=== PATIENT | male | born 1950 | race Caucasian/White ===

== ENCOUNTER 2022-01-13 12:53 | Inpatient (IN) | payer MEDICARE, SELFPAY ==
[2022-01-13] VITALS (34 sets, daily range): BP systolic 70–111; BP diastolic 60–77; PULSE 46–104; RESP 10–28; TEMP 28.9–34.7; O2SAT 95–100; BMI 23.1
--- NOTE | ~2022-01-13 | XR_ITS ---
EXAMINATION: XR chest ET placement DATE: 01/13/2022 13:19 INDICATION: Intubation. TECHNIQUE: A single frontal view of the chest was obtained. COMPARISON: Chest 2 views 02/13/2019 FINDINGS: The patient is rotated to his left. There is mild elevation of left hemidiaphragm. There is no pneumonia, pleural effusion, or pneumothorax. The heart size is normal. Calcified mediastinal lym ph nodes are consistent with old granulomatous disease. The endotracheal tube tip is 3.0 cm above the donald. There is a right internal jugular port with tip at superior cavoatrial junction. The nasogas tric tube tip is in the stomach. There are old healed bilateral rib fractures. IMPRESSION: 1. No acute cardiopulmonary disease. Reviewed, dictated and finalized at location B.
--- NOTE | ~2022-01-13 | CT_ITS ---
EXAMINATION: CT brain wo con DATE: 01/13/2022 14:05 INDICATION: Unresponsive. TECHNIQUE: Computed tomography (CT) of the head was performed without intravenous contrast. The mA wa s adjusted according to patient size. Iterative reconstruction technique was employed. The dose-lengt h product was 605.33 mGy-cm. COMPARISON: None FINDINGS: There is acute hematoma in the kingston, midbrain, right thalamus, lateral ventricles, third ve ntricle, and fourth ventricle. There is enlargement of the lateral ventricles. There is extensive dec reased attenuation in the cerebral white matter with a periventricular predominance. There is 9 mm le ftward midline shift measured at the foramen of Monro. There is effacement of the quadrigeminal plate cistern. There is effacement of the cerebral sulci bilaterally. There is mucosal thickening in the p aranasal sinuses. There are likely changes of ocular lens replacement surgeries. The mastoid air cell s are normal. There is superior left posterior scalp soft tissue swelling. IMPRESSION: 1. Acute intraparenchymal hematoma involving the kingston, midbrain, and right thalamus. 2. Acute hematoma in the lateral ventricles, third ventricle, and fourth ventricle with hydrocephalus involving the lateral ventricles. 3. 9 mm leftward midline shift, effacement of the cerebellar sulci, and effacement of the quadrigemin al plate cistern. 4. Extensive cerebral white matter disease, likely a combination of chronic small vessel ischemic dis ease and transependymal flow of cerebrospinal fluid. Reviewed, dictated and finalized at location B. IMPRESSION: 1. Acute intraparenchymal hematoma involving the kingston, midbrain, and right thal amus. 2. Acute hematoma in the lateral ventricles, third ventricle, and fourth ventri jadiel with hydrocephalus involving the lateral ventricles. 3. 9 mm leftward midline shift, effacement of the cerebellar sulci, and effacem ent of the quadrigeminal plate cistern. 4. Extensive cerebral white matter disease, likely a combination of chronic sma ll vessel ischemic disease and transependymal flow of cerebrospinal fluid.
--- NOTE | ~2022-01-13 | XR_ITS ---
XR abdomen NG/feed tube insert INDICATION: Evaluate NG tube position. TECHNIQUE: Limited KUB perform for evaluating NG tube . COMPARISON: No prior studies for comparison. FINDINGS: NG tube tip in the stomach. Visualized bowel gas pattern is unremarkable.Retrocardiac infi ltrates may represent atelectasis or scarring. IMPRESSION: 1: NG tube tip in the stomach. Reviewed, dictated and finalized at location A.
--- NOTE | ~2022-01-13 | CT_ITS ---
EXAMINATION: CT cervical spine wo con DATE: 01/13/2022 14:05 INDICATION: Unresponsive TECHNIQUE: Computed tomography (CT) of the cervical spine was performed without intravenous contrast. Automated exposure control and iterative reconstruction technique were employed. The dose-length pro duct was 212.45 mGy-cm. COMPARISON: None FINDINGS: Mild cervical thoracic dextrocurvature. 2 mm anterolisthesis C4 on C5. Vertebral body heights are nor mal. No fracture. Multilevel disc calcification with severe disc height loss at C5-C6, moderate disc height loss at C3-C4 and mild disc height loss at C2-C3, C4-C5 and C6-C7. Small posterior disc osteop hyte complex at C5-C6 results in mild central canal stenosis at this level. Multilevel bilateral mode rate to severe uncovertebral and cervical facet osteoarthritis. This contributes to moderate neural f oraminal stenosis on the left at C3-C4 and mild at the remaining bilateral cervical levels. Partially visualized endotracheal tube and nasogastric tube and right internal jugular central venous port cat heter, the visualized portions of which each appear normal position. Cervical soft tissues are unrema rkable. Moderate emphysema the apices of the lungs. Mild dependent atelectasis in the visualized apic al segment of the left upper lobe. Prominent intraventricular hemorrhage in the left and right latera l, third and fourth ventricles. See separate head CT report for further detail. IMPRESSION: 1. Severe cervical spondylosis. No acute osseous abnormality. 2. Intraventricular hemorrhage. See separate head CT report for further detail. Reviewed, dictated and finalized at location A.
--- NOTE | 2022-01-13 12:59 | PC.NURSE ---
EDP Dr Jones at bedside to attempt intubation. At 1259, 20 Etomidate and 100 Succinylcholine IVP for procedure.
--- NOTE | 2022-01-13 13:04 | PC.NURSE ---
Pt intubated at this time, 7 1/2 tube, 23 at the teeth. Pt has no lung sounds or chest rise to LEFT lung. +Chest rise and fall and sounds to RIGHT side. XRAY called for STAT Xray.
--- NOTE | 2022-01-13 13:06 | ECG_ITS ---
Measurements Intervals [place] Rate: 57 P: 84 TN: 181 QRS: 75 QRSD: 126 T: 86 QT: 549 QTc: 537 Interpretive Statements SINUS BRADYCARDIA LEFT BUNDLE BRANCH BLOCK MINIMAL Q WAVES- INF/LAT LEADS BASELINE ARTIFACT- I, V2-V3 ABNORMAL ECG Electronically Signed On 01-13-2022 13:24:51 CDT by Christiano Saavedra D.O.
--- NOTE | 2022-01-13 13:12 | ED.GENADULT ---
HPI - General Adult General Chief complaint: Cardiac Arrest/CPR Stated complaint: unresponsive Time Seen by Provider: 01/13/22 13:12 Source: family, EMS and RN notes reviewed Mode of arrival: EMS Limitations: altered mental status and clinical condition History of Present Illness HPI narrative: 71-year-old male presented to the emergency department from home after being found unresponsive at home. Family states that last time they had contact with him was a week ago last Thursday. Patient sister went to go check on him and found him laying on the bathroom floor. She reports the patient did respond to her by giving her a thumbs up. Patient was being bagged upon arrival to the ED. upon arrival to the ED the patient was unresponsive with fixed pupils. Patient does have a past medical history of lung cancer Related Data Home Medications Medication Instructions Recorded Confirmed aspirin 81 mg tablet,delayed 81 mg PO DAILY 02/03/20 01/13/22 release atorvastatin 80 mg tablet 80 mg PO DAILY 02/03/20 01/13/22 tamsulosin 0.4 mg capsule 0.4 mg PO DAILY 02/03/20 01/13/22 duloxetine 30 mg capsule,delayed 60 mg PO DAILY cap 02/23/20 01/13/22 release acetaminophen 500 mg capsule 500 mg PO Q6H PRN 04/16/21 01/13/22 budesonide-formoterol HFA 80 2 puff INHALATION BID g 04/16/21 01/13/22 mcg-4.5 mcg/actuation aerosol inhaler fenofibrate 54 mg tablet 54 mg PO DAILY 04/16/21 01/13/22 levothyroxine 100 mcg tablet 100 mcg PO DAILY 04/16/21 01/13/22 mirtazapine 15 mg tablet 15 mg PO DAILY 04/16/21 01/13/22 multivitamin with minerals 1 cap PO DAILY 04/16/21 01/13/22 omeprazole 20 mg capsule,delayed 20 mg PO DAILY 04/16/21 01/13/22 release bexarotene 75 mg PO BID 01/13/22 01/13/22 Allergies Allergy/AdvReac Type Severity Reaction Status Date / Time No Known Allergies Allergy Mild Verified 01/13/22 18:15 Review of Systems Review of Systems: ROS unobtainable: Yes unobtainable due to medical condition and unobtainable due to mental status PMF Past Medical History Medical History (Updated 01/13/22 @ 21:21 by Mey Jiménez NP) Benign essential hypertension BPH (benign prostatic hyperplasia) Chronic pain syndrome COPD (chronic obstructive pulmonary disease) with chronic bronchitis Hyperlipidemia Hypothyroidism Lichen planus Family History Family History Sibling Family history of dementia Social History Social History (Updated 01/13/22 @ 21:22 by Mey Jiménez NP) Social History: The patient is a former smoker and he is . Patient lives alone. Code status DNR Smoking status: Former smoker Tobacco type: cigarettes Second hand tobacco smoke exposure: No Smoking end date: 08/31/16 Alcohol intake: unknown Substance use: unknown Spiritual care concerns: Yes Exam Narrative: APPEARANCE: Ill-appearing, unresponsive HEAD: normocephalic, atraumatic. EYES: Pupils fixed NOSE: Normal no drainage EARS:TMS clear with good light reflex. THROAT: Pharynx clear, no exudate. NECK: Supple. No adenopathy, no masses. RESPIRATORY: Airway patent, respirations nonlabored. Clear to auscultation bilaterally, no rales, rhonchi, wheezing. CARDIOVASCULAR: Regular rate and rhythm without murmurs rubs or gallops. ABDOMINAL: Soft, nontender, nondistended, normal bowel sounds MUSCULOSKELETAL: No deformity NEURO: Patient unresponsive SKIN: Warm, dry. Normal Color Course Consultations Consultation #1: After arrival to the ED the patient was intubated to protect his airway. Dr Mccormack at [facility] was consulted for neurosurgery. He was unable to see the images due to their PACS system being down. Patient was accepted for transport to [facility] for evaluation by neurosurgery. family was updated on the severity of the injury. Patient does have a prior documentation of declining his cancer treatment and requesting placement to hospice. Multiple conversations were h
[2022-01-13 13:25] LABS: Fractional Inspired Oxygen 100 %; HCO3 ABG 23.2 mEq/l (22.0-26.0); Oxygen Content ABG 15.7 %vol (16.0-22.0); Oxygen Saturation ABG 99.5 % (95.0-100.0); Oxyhemoglobin 98.5 % THb (90.0-100.0); PCO2 ABG 51.7 mmHg (35.0-45.0); PO2 ABG 259.3 mmHg (80.0-100.0); PO2 FiO2 Ratio Arterial Blood 2.59 %; Total Hemoglobin 10.9 g/dL (12.0-18.0)
[2022-01-13 13:26] LABS: Device VENTILATOR; Modified Allen's Test Pass; Site Drawn RIGHT RADIAL; pH ABG 7.269 (7.350-7.450)
[2022-01-13 13:27] LABS: Arterial Blood Gas PEEP 5 cmH2O; Arterial Blood Gas Tidal Volume 450 ml; Arterial Blood Gas Vent Mode CMV; Arterial Blood Gas Ventilator rate 16 /MIN
--- NOTE | 2022-01-13 13:32 | PC.NURSE ---
per quesada temp probe core temp 84.2 bear alma applied. p 74. bp 104/68
[2022-01-13] MEDS: SODIUM CHLORIDE 0.9% IV 1,000 ML 999 ML IV CONT ×2 (13:36→16:32)
[2022-01-13] MEDS: PANTOPRAZOLE SODIUM IV 40 MG VIAL 80 MG IV PUSH (13:45)
[2022-01-13 13:55] LABS: Basophils Percent Auto 0.4 % (0.2-1.2); Eosinophils Percent Auto 0.7 % (0-4.4); Hematocrit 34.7 % (42.0-52.0); Hemoglobin 10.7 g/dL (14.0-18.0); Lymphocytes Absolute Auto 0.13 K/mm3 (0.9-3.2); Lymphocytes Percent Auto 4.6 % (18.3-44.2); Mean Corpuscular HGB Conc 30.8 g/dl (32-36); Mean Corpuscular Hemoglobin 29.2 pg (26-34); Mean Corpuscular Volume 94.8 fl (80-100); Mean Platelet Volume 8.8 fl (7.4-10.4); Monocytes Absolute Auto 0.3 K/mm3 (0.1-0.6); Monocytes Percent Auto 11.7 % (2.6-8.5); Neutrophils Absolute Auto 2.3 K/mm3 (1.3-6.7); Neutrophils Percent Auto 82.6 % (45.5-73.1); Platelet Count Result 234 k/mm3 (150-375); Red Blood Count 3.66 M/mm3 (4.6-6.20); Red Cell Distribution Width 17.1 % (11.5-14.5); White Blood Count 2.8 K/mm3 (4.5-10.0)
[2022-01-13 13:57] LABS: Appearance Urine Clear (Clear); Bilirubin Urine 1+ (Negative); Blood Urine Negative (Negative); Color Urine Yellow (Yellow); Glucose Urine UA Negative (Negative); Ketones Urine Negative (Negative); Lactic Acid Reflex 1.4 mmol/L (0.7-2.0); Leukocyte Esterase Ur Negative LEU/UL (Negative); Nitrate Urine Negative (Negative); Protein Urine 2+ mg/dL (Negative); Specific Grav Ur >= 1.030 (1.001-1.035); Urobilinogen Urine 0.2 mg/dL (<2.0); pH Urine 5.5 (5.0-9.0)
[2022-01-13 13:58] LABS: Alanine Aminotransferase 39 U/L (6-50); Albumin Level 3.3 g/dL (3.5-5.1); Alkaline Phosphatase 64 U/L (38-126); Anion Gap 4 mmol/L (8-16); Aspartate Amino Transferase 95 U/L (17-59); Bilirubin,Total 0.1 mg/dL (0.2-1.3); Blood Urea Nitrogen 44 mg/dL (9-20); Calcium 8.7 mg/dL (8.4-10.2); Carbon Dioxide 30 mmol/L (22-30); Chloride 109 mmol/L (98-107); Creatine Kinase 1476 U/L (55-170); Estimated CRCL calculation 75 ml/min; Estimated Glomerular Filt Rate > 60; Glucose 111 mg/dL (65-110); Potassium 3.8 mmol/L (3.4-5.0); Sodium 143 mmol/L (137-145)
[2022-01-13 13:59] LABS: Ammonia < 9 umol/L (9-30)
[2022-01-13 14:03] LABS: Add Urine Microscopic? YES
[2022-01-13 14:05] LABS: Hyaline Casts Urine 15-19 /lpf; Mucus Urine Moderate /lpf; RBC Urine 0-2 /hpf (0-2); Squamous Epithelial Cell Urine Rare /hpf (Few); WBC Urine 0-3 /hpf
--- NOTE | 2022-01-13 14:05 | PC.NURSE ---
returned from ct. pt remains unresponsive. pupils fixed and dilated. p 90. bp 111/77. temp 84.3
[2022-01-13 14:08] LABS: INR 1.3; Prothrombin Time 15.6 Seconds (11.1-14.7); Troponin I < 0.012 ng/mL (0.000-0.034)
--- NOTE | 2022-01-13 14:27 | PC.NURSE ---
daughters and son in law at bedside.
--- NOTE | 2022-01-13 15:38 | PC.NURSE ---
at 1514 [facility] accepted transfer to [facility] at [address] and rn Kenia cancelled
--- NOTE | 2022-01-13 16:32 | PC.NURSE ---
after many extensive discussions with sisters and daughters plan of care is to keep pt intubated and to provide comfort overnight as they are attempting to get ahold of brother. pt is to be DNR family conference to be held tomorrow for potential withdrawal of care.
[2022-01-13 17:14] LABS: Troponin I < 0.012 ng/mL (0.000-0.034)
--- NOTE | 2022-01-13 17:15 | PM.IMHP ---
H&P: HPI History of Present Illness Date/Time: 01/13/22 17:15 this is a 71-year-old male patient came to the emergency room after being found unresponsive at home. The family had their last known contact completed will gastritis. The patient's sister by started to the bottom laying on the floor in the bathroom. His sister the patient did for the finger hydrate or P 1 bag upon arrival to ED he was unresponsive with fixed pupils. The patient was intubated. His white count was found to be 2.8. H&H 10.7 and 34.7. ABGs pH 7.26 MRI CO2 51.7 PO2 229.3. Troponin negative x2. Head CT was read as the following. 1.Acute intraparenchymal hematoma involving the kingston, midbrain, and right thalamus. 2. Acute hematoma in the lateral ventricles, third ventricle, and fourth ventricle with hydrocephalus involving the lateral ventricles. 3. 9 mm leftward midline shift, effacement of the cerebellar sulci, and effacement of the quadrigeminal plate cistern. 4. Extensive cerebral white matter disease, likely a combination of chronic small vessel ischemic disease and transependymal flow of cerebrospinal fluid. Patient was made DNR. This is a short-stay summary. As the patient not too long after this assessment. The patient was placed on IV fluids with the family members did not want any vasopressors. This is facial asymmetry date of service is 01/13/2022. Chief Complaint: Unresponsive Review of Systems Review of Systems: ROS unobtainable: Yes unobtainable due to mental status PMFSH Past Medical History Medical History (Updated 01/13/22 @ 21:21 by Mey Jiménez NP) Benign essential hypertension BPH (benign prostatic hyperplasia) Chronic pain syndrome COPD (chronic obstructive pulmonary disease) with chronic bronchitis Hyperlipidemia Hypothyroidism Lichen planus Family History Family History Sibling Family history of dementia Social History Social History (Updated 01/13/22 @ 21:22 by Mey Jiménez NP) Social History: The patient is a former smoker and he is . Patient lives alone. Code status DNR Smoking status: Former smoker Tobacco type: cigarettes Second hand tobacco smoke exposure: No Smoking end date: 08/31/16 Alcohol intake: unknown Substance use: unknown Spiritual care concerns: Yes Meds Home Medications and Allergies Home Medications Medication Instructions Recorded Confirmed Type aspirin 81 mg tablet,delayed 81 mg PO DAILY 02/03/20 01/13/22 History release atorvastatin 80 mg tablet 80 mg PO DAILY 02/03/20 01/13/22 History tamsulosin 0.4 mg capsule 0.4 mg PO DAILY 02/03/20 01/13/22 History duloxetine 30 mg capsule,delayed 60 mg PO DAILY cap 02/23/20 01/13/22 History release acetaminophen 500 mg capsule 500 mg PO Q6H PRN 04/16/21 01/13/22 History budesonide-formoterol HFA 80 2 puff INHALATION BID g 04/16/21 01/13/22 History mcg-4.5 mcg/actuation aerosol inhaler fenofibrate 54 mg tablet 54 mg PO DAILY 04/16/21 01/13/22 History levothyroxine 100 mcg tablet 100 mcg PO DAILY 04/16/21 01/13/22 History mirtazapine 15 mg tablet 15 mg PO DAILY 04/16/21 01/13/22 History multivitamin with minerals 1 cap PO DAILY 04/16/21 01/13/22 History omeprazole 20 mg capsule,delayed 20 mg PO DAILY 04/16/21 01/13/22 History release bexarotene 75 mg PO BID 01/13/22 01/13/22 History ipratropium bromide 0.02 % 2.5 ml INHALATION Q4H PRN #150 ml 01/13/22 01/13/22 Rx solution for inhalation Allergies Allergy/AdvReac Type Severity Reaction Status Date / Time No Known Allergies Allergy Mild Verified 01/13/22 18:15 Vital Signs Vital Signs - 24 hr 01/13/22 12:54 01/13/22 13:02 01/13/22 13:04 Temperature Pulse Rate 49 L 61 57 L Respiratory Rate 10 L 21 H 28 H Blood Pressure 103/70 103/70 Pulse Oximetry 100 01/13/22 13:14 01/13/22 13:15 01/13/22 13:16 Temperature Pulse Rate 50 L 47 L 46 L Respiratory R
--- NOTE | 2022-01-13 17:43 | PC.NURSE ---
This patient, Jose L Darnell, was admitted to Intensive Care Unit-9. Patient/family oriented to hospital policies and general routines including ID bracelet, bed and alarms, visiting hours, pain management, procedures, bathroom and other care routines, personal items, smoking policy, room service/diet, and visiting hours. Information on how to activate the Rapid Response Team has been discussed. Patient/Family are encouraged to report perceived risks to care and to ask questions if they do not understand what they are told or what they should do.
[2022-01-13] MEDS: SODIUM CHLORIDE 0.9% IV 1,000 ML 150 ML IV CONT (17:54)
--- NOTE | 2022-01-13 21:28 | PM.DDS ---
Discharge Summary Date and Time Date of : 01/13/22 Time of : 19:35 Provider Pronounced By: Christiana Guallpa RN Probable Cause of Probable Cause of : Acute intraparenchymal hematoma involving the kingston, midbrain, and right thalamus. 2. Acute hematoma in the lateral ventricles, third ventricle, and fourth ventricle with hydrocephalus involving the lateral ventricles. 3. 9 mm leftward midline shift, effacement of the cerebellar sulci, and effacement of the quadrigeminal plate cistern. 4. Extensive cerebral white matter disease, likely a combination of chronic small vessel ischemic disease and transependymal flow of cerebrospinal fluid. Summary Hospital Course: HPI narrative: 71-year-old male presented to the emergency department from home after being found unresponsive at home. Family states that last time they had contact with him was a week ago last Thursday. Patient sister went to go check on him and found him laying on the bathroom floor. She reports the patient did respond to her by giving her a thumbs up. Patient was being bagged upon arrival to the ED. Patient was unresponsive with fixed pupils. Additional Data Confirmation of as documented by pronouncing clinician: Pupillary Reflex, Palpable Pulses, Response to Stimuli, Heart Tones and Breath Sounds Name of Provider Notified: Hopen Time Provider Notified: 19:45 Provider Requests Autopsy: No Family Requests Autopsy: No Weight And Test Bar Clerk Notified: Yes Date [facility] Notified of : 01/13/22 Time [facility] Notified of : 19:55
== END 2022-01-13 19:35 | disposition expired | DRG 66 ==
LOC: ANHED 16:35 → ANHICU 17:31
PROVIDERS: Admitting Provider Student in an Organized Health Care Education/Training Program; Emergency Provider Emergency Medicine; PCP Internal Medicine; Visit Provider Nurse Practitioner
DX: I61.8 Other nontraumatic intracerebral hemorrhage (principal); Z66 Do not resuscitate; N40.0 Benign prostatic hyperplasia without lower urinary tract symptoms; I10 Essential (primary) hypertension; J44.9 Chronic obstructive pulmonary disease, unspecified; G89.4 Chronic pain syndrome; I67.82 Cerebral ischemia; E78.5 Hyperlipidemia, unspecified; E03.9 Hypothyroidism, unspecified; L43.9 Lichen planus, unspecified; Z87.891 Personal history of nicotine dependence; Z79.82 Long term (current) use of aspirin; Z85.118 Personal history of other malignant neoplasm of bronchus and lung
CPT/HCPCS: 31500; 36415; 36600; 70450; 72125; 80053; 81001; 82140; 82550; 82805; 83605; 84484; 85025; 85610; 86850; 86900; 86901; 93005; 96361; 96374; 99291; C9113; J0330; J7030